=== PATIENT | female | born 1990 | race American Indian/Alaskan Native ===

== ENCOUNTER 2017-10-14 09:35 | Emergency (ER) | payer MEDICAID, OTHER ==
[2017-10-14 11:04] LABS: Bilirubin,Urine NEG (Negative); Blood,Urine NEG (Negative); Color,Urine Yellow (Yellow); Mucus,Urine FEW /HPF; Protein,Urine <15 mg/dL mg/dL (Negative)
[2017-10-14 11:11] LABS: HCG Qualitative,Urine Negative (Negative)
--- NOTE | 2017-10-14 11:39 | Emergency Department Report ---
ED Female HPI - General Chief complaint: Urogenital-Female Stated complaint: BODY HURTS Time Seen by Provider: 10/14/17 11:15 Source: patient Mode of arrival: Ambulatory Limitations: No Limitations - History of Present Illness Initial comments: 27-year-old female past medical history PTSD and bipolar disorder schizophrenia anxiety disorder depression presents with complaint of sore throat nasal congestion for 2 days. Patient also states she has thick white vaginal discharge for 2 days. Denies chest pain palpitations nausea vomiting dysuria and increased urinary frequency abdominal pain. Patient is awake alert and oriented 3 fully lucid. Accompanied by family member at bedside. MD Complaint: vaginal discharge, pelvic pain Onset/Timin -: days(s) Quality: aching Consistency: intermittent - Related Data Sexually active: Yes Previous Rx's Medication Instructions Recorded Last Taken Type Dextromethorphan/Benzocaine 1 each PO Q4H PRN #1 box 10/14/17 Unknown Rx [Cepacol Sorethroat-Cough Carisa] Ibuprofen [Motrin] 800 mg PO Q8HR PRN #20 tablet 10/14/17 Unknown Rx Allergies Allergy/AdvReac Type Severity Reaction Status Date / Time No Known Allergies Allergy Verified 10/14/17 10:34 ED Review of Systems ROS: Stated complaint: BODY HURTS Other details as noted in HPI Constitutional: denies: chills, fever Eyes: denies: eye pain, eye discharge, vision change ENT: throat pain (2 days of sore throat). denies: ear pain Respiratory: denies: cough, shortness of breath, wheezing Cardiovascular: denies: chest pain, palpitations Endocrine: no symptoms reported Gastrointestinal: denies: abdominal pain, nausea, diarrhea Genitourinary: discharge (2 days of vaginal discharge). denies: urgency, dysuria Musculoskeletal: denies: back pain, joint swelling, arthralgia Skin: denies: rash, lesions Neurological: denies: headache, weakness, paresthesias Psychiatric: denies: anxiety, depression Hematological/Lymphatic: denies: easy bleeding, easy bruising ED Past Medical Hx - Past Medical History Previous Medical History?: Yes Hx Psychiatric Treatment: Yes (bipolar, schizophrenia, PTSD, anxiety disorder, and depression) - Surgical History Past Surgical History?: No - Social History Smoking Status: Never Smoker - Medications Home Medications: Home Medications Medication Instructions Recorded Confirmed Last Taken Type Dextromethorphan/Benzocaine 1 each PO Q4H PRN #1 box 10/14/17 Unknown Rx [Cepacol Sorethroat-Cough Carisa] Ibuprofen [Motrin] 800 mg PO Q8HR PRN #20 tablet 10/14/17 Unknown Rx ED Physical Exam - General Limitations: No Limitations General appearance: alert, in no apparent distress - Head Head exam: Present: atraumatic, normocephalic - Eye Eye exam: Present: normal appearance, PERRL, EOMI - ENT ENT exam: Present: mucous membranes moist - Expanded ENT Exam Expanded Throat exam: Positive: tonsillar erythema (some tonsillar erythema but no exudates uvula is midline no clinical [employer] on exam) - Neck Neck exam: Present: normal inspection, full ROM - Respiratory Respiratory exam: Present: normal lung sounds bilaterally. Absent: respiratory distress - Cardiovascular Cardiovascular Exam: Present: regular rate, normal rhythm. Absent: systolic murmur, diastolic murmur, rubs, gallop - GI/Abdominal GI/Abdominal exam: Present: soft, normal bowel sounds - External exam: Present: normal external exam Speculum exam: Present: vaginal discharge (whitish vaginal discharge on wet prep ), cervical discharge (whitish cervical discharge) Bi-manual exam: Present: normal bi-manual exam (minimal to no adnexal tenderness or cervical motion tenderness on exam) - Extremities Exam Extremities exam: Present: normal inspection - Back Exam Back exam: Present: normal inspection - Neurological Exam Neurological exam: Present: alert, oriented X3, CN II-XII intact, normal gait - Psychiatric Psychiatric exam: Present: normal affect, normal mood - Skin Skin exam: Present: warm, dry, intact, normal color. Absent: rash ED Course Vital Signs 10/14/17 10:30 Temperature 98.6 F Pulse Rate 63 Respiratory 18 Rate Blood Pressure 114/60 O2 Sat by Pulse 97 Oximetry ED Medical Decision Making - Medical Decision Making A/P: Sore throat, possible cervicitis, vaginal discharge 1-motrin when necessary, throat lozenges when necessary 2-as this patient does complain of vaginal discharge it covered her empirically for cervicitis with azithromycin and ceftriaxone 3-urinalysis unremarkable, patient is not , GC cultures sent, wet prep unremarkable 4- follow-up with primary care doctor Critical care attestation.: If time is entered above; I have spent that time in minutes in the direct care of this critically ill patient, excluding procedure time. ED Disposition Clinical Impression: Sore throat, Vaginal discharge Disposition: - TO HOME OR SELFCARE Is pt being admited?: No Does the pt Need Aspirin: No Condition: Stable Instructions: Pharyngitis (ED), Cervicitis (ED) Prescriptions: Dextromethorphan/Benzocaine [Cepacol Sorethroat-Cough Carisa] 1 each PO Q4H PRN #1 box PRN Reason: Sore Throat Ibuprofen [Motrin] 800 mg PO Q8HR PRN #20 tablet PRN Reason: Sore Throat Referrals: [facility] [Provider Group] - 3-5 Days [facility] [Outside] - 3-5 Days Forms: Accompanied Note Time of Disposition: 12:40
[2017-10-14] MEDS ORDERED: XYLOCAINE 1% MPF 5 mL INFILTRATI ONE (12:25)
[2017-10-14] MEDS ORDERED: ROCEPHIN IM ONE (12:25)
[2017-10-14] MEDS ORDERED: ZITHROMAX PO ONE (12:26)
[2017-10-14 13:14] VITALS: BP 126/77
== END 2017-10-14 13:13 | disposition home or self-care (01) ==
LOC: ED 09:35
DX: J02.9 Acute pharyngitis, unspecified (principal); N93.8 Other specified abnormal uterine and vaginal bleeding; F43.10 Post-traumatic stress disorder, unspecified; F20.9 Schizophrenia, unspecified; F41.9 Anxiety disorder, unspecified; F31.9 Bipolar disorder, unspecified
CPT/HCPCS: 81001; 81025; 87116; 87210; 87430; 87591; 96372; 99283; J0696